=== PATIENT | male | born 1935 | race Caucasian/White ===

== ENCOUNTER 2021-07-28 09:43 | Observation (INO) ==
[2021-07-28] MEDS ORDERED: ONDANSETRON 4 MG/2 ML VIAL IV ONE (09:57)
[2021-07-28] MEDS ORDERED: 0.9 % SODIUM CHLORIDE 1,000 ML IV ONE ×2 (09:57→15:00)
--- NOTE | 2021-07-28 10:01 | Emergency Department Note ---
Nausea/Vomiting/Diarrhea HPI General Chief complaint: Nausea/Vomiting/Diarrhea Stated complaint: N/v/d Time Seen by Provider: 07/28/21 09:48 Source: patient and family Mode of arrival: wheelchair Limitations: no limitations History of Present Illness HPI Narrative: Narrative: 86-year-old male presents chief complaint of vomiting and diarrhea. Patient states this the eighth 80s had vomiting and diarrhea.'s mostly diarrhea occasional vomiting. Diarrhea is watery not bloody patient denies any abdominal pain chest pain shortness of breath or headache. Patient typically has chronic constipation but has had loose stools for the last 8 days. Denies any recent travel ill contacts or being on antibiotics. Denies any new foods. His is here at the bedside is not ill or having any GI complaints. Symptoms are worse when he tries to eat or drink anything. Last vomited this morning. Patient denies any history of a colitis. Related Data Home Medications Medication Instructions Recorded Confirmed desonide 0.05 % topical ointment 1 applic TOPICAL BID PRN 06/26/18 06/14/21 acetaminophen [Acetaminophen Extra PO 12/22/19 06/14/21 Strength] alendronate 70 mg tablet 70 mg PO QWEEK 12/22/19 07/28/21 cholecalciferol (vitamin D3) 25 25 mcg PO QDAY 12/22/19 06/14/21 mcg (1,000 unit) tablet docusate sodium 100 mg tablet 100 mg PO BID 12/22/19 06/14/21 calcium carbonate 600 mg calcium 2,500 mg PO BID tab 06/15/20 06/14/21 (1,500 mg) tablet budesonide 180 mcg/actuation 1 inh INHALATION DAILY 07/28/21 07/28/21 breath activated powder inhaler (Pulmicort Flexhaler) fluticasone furoate 100 1 puff CONTINUOUS INHALATION QDAY 07/28/21 07/28/21 mcg-vilanterol 25 mcg/dose inhalation powder (Breo Ellipta) levothyroxine 125 mcg tablet 1 tab PO QAM 07/28/21 07/28/21 tamsulosin 0.4 mg capsule 0.4 mg PO BID 07/28/21 07/28/21 Previous Rx's Medication Instructions Recorded triamcinolone acetonide 0.1 % 1 applic TOPICAL BID #30 g NS 03/17/22 topical ointment Allergies Allergy/AdvReac Type Severity Reaction Status Date / Time finasteride AdvReac Intermediate Rash Verified 07/28/21 09:44 [email or web address] [From Myrbetriq] AdvReac Intermediate Rash Verified 07/28/21 09:44 Review of Systems ROS ROS Narrative: Narrative: All systems ED: reviewed and negative except as stated. Constitutional: Denies fever, chills or sweats Eyes: Denies vision change ENT ED: Denies throat pain or congestion Cardiovascular: Denies chest pain Respiratory: Denies shortness of breath or cough Gastrointestinal: Reports as per HPI Genitourinary: Denies dysuria, frequency, urgency or hematuria Musculoskeletal: Denies back pain or joint pain Integumentary: Denies rash Neurological: Denies headache or dizziness Psychiatric: Denies anxiety, suicidal thoughts or homicidal thoughts Endocrine: Denies polydipsia or polyuria Hematological/Lymphatic: Denies easy bleeding or easy bruising PFSH Narrative Patient History Narrative: Narrative: Medical/Surgical/Family History All Active Problems (Updated 07/28/21 @ 11:52 by Socrates Cueto MD) Fall (Acute) Facial laceration (Acute) Closed fracture of right distal radius (Acute) Ileus (Acute) BPH w urinary obs/LUTS (Acute) BPH associated with nocturia (Acute) Leukocytosis (Chronic) Facial abrasion (Chronic) Syncope (Chronic) C2 cervical fracture (Chronic) H/O neck surgery (Chronic ~2019) History of tonsillectomy (Chronic) Allergy, food (Chronic) Dupuytren contracture (Chronic) Macular degeneration, 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) Urinary frequency (Chronic) Dyspnea (Chronic) Elevated prostate specific antigen (PSA) (Chronic) Acute prostatitis (Chronic) Nocturia (Chronic) Cough (Chronic) Post-nasal drip (Chronic) Nasal congestion (Chronic) Macular degeneration (Chronic) Osteoporosis (Chronic) Eczema (Chronic) Dupuytren's contracture of both hands (Chronic) BPH (benign prostatic hyperplasia) (Chronic) Chronic obstructive lung disease (Chronic) Asthma (Chronic) Hypothyroidism (Chronic) Acute retention of urine (Chronic) Constipation (Chronic) Medical History (Updated 07/28/21 @ 11:52 by Socrates Cueto MD) Acute prostatitis Allergy, food Asthma BPH (benign prostatic hyperplasia) C2 cervical fracture Chronic obstructive lung disease Cough Dupuytren contracture Dupuytren's contracture of both hands Dyspnea Eczema Elevated prostate specific antigen (PSA) Facial abrasion Hypothyroidism Late effect of fracture of cervical vertebra Leukocytosis Macular degeneration Macular degeneration, bilateral Nasal congestion Nocturia Osteoporosis Post-nasal drip Syncope Urinary frequency Surgical History H/O neck surgery (~2019) [place] - C1-2 posterior instrumented fusion with open reduction of C2 fracture History of tonsillectomy Family History Mother Uterine cancer Social History Smoking Status: Never smoker Alcohol Intake Frequency: holiday/special occasion only Substance Use: does not use Exam Narrative Narrative: Narrative: Vital Signs reviewed. Constitutional: Awake alert no acute distress well-nourished well-developed Head: Normocephalic, atraumatic Eyes: PERRLA, EOMI, no conjunctivitis Ear: Normal canals and TM's Oropharynx: moist oral mucosa, no edema, no erythema, no exudate Neck: Supple, no lymphadenopathy, no JVD Lungs: Breathing unlabored, lungs clear Cardiac: Regular rate and rhythm, normal distal pulses, GI: Soft nontender nondistended no guarding no rebound Musculoskeletal: No tenderness, no deformities, no edema, full range of motion Back: no CVA or midline tenderness Neuro: Awake alert, cranial nerves II through XII grossly intact, no focal motor or sensory deficits Psychiatric: Normal mood and affect Skin: Warm dry no rash, cap refill less than 2 seconds General Limitations: no limitations Course Consultations Consultation #1: Discussed with Dr. Mccartney who agrees to come evaluate patient Time: 12:49 Vital Signs Vital signs: Vital Signs Temperature 97.4 F 07/28/21 09:44 Pulse Rate 88 07/28/21 09:44 Respiratory Rate 16 07/28/21 09:44 Blood Pressure 158/85 07/28/21 09:44 Pulse Oximetry (%) 97 07/28/21 09:44 Temperature 98 F 07/28/21 14:43 Pulse Rate 71 07/28/21 14:43 Respiratory Rate 16 07/28/21 14:43 Blood Pressure 148/78 07/28/21 14:43 Pulse Oximetry (%) 94 07/28/21 14:43 MDM MDM Narrative Medical decision making narrative: Narrative: 86-year male presents with nausea vomiting for the last 8 days. Unable to keep anything down. No abdominal pain. No fevers chills. X-ray shows ileus. Patient gives bolus normal saline and it recommended observation in the hospital for hydration and symptomatic treatment. Differential Diagnosis Differential Diagnosis: Gastroenteritis, dehydration, electrolyte abnormality Lab Data Result diagrams: 07/28/21 09:45 07/28/21 09:45 Labs: Lab Results 07/28/21 07/28/21 07/28/21 Range/Units 09:45 09:45 09:45 WBC 11.8 H (4.5-11.0) K/mcL RBC 5.05 (4.63-6.08) M/mcL Hgb 15.8 (13.7-17.5) g/dL Hct 46.1 (40.1-51.0) % MCV 91.3 (80.0-100.0) fL MCH 31.3 (26.0-34.0) pg MCHC 34.3 (31.0-36.0) g/dL RDW 13.2 (11.5-14.5) % Plt Count 198 (140-440) K/mcL MPV 10.3 (7.4-10.4) fL Seg Neutrophils % 89 H (38-78) % Band Neutrophils % 1 (0-10) % Lymphocytes % 8 L (15-49) % Monocytes % (Manual) 2 (1-12) % Platelet Estimate Normal (Normal) RBC Morphology Normal (Normal) Sodium 133 (133-145) mmol/L Potassium 3.6 (3.3-5.1) mmol/L Chloride 94 L (96-108) mmol/L Carbon Dioxide 24 (22-30) mmol/L Anion Gap 15.0 (8.0-16.0) BUN 14 (8-23) mg/dL Creatinine 0.8 (0.7-1.2) mg/dL GFR Calculation 80 Glucose 102 (70-105) mg/dL Calcium 9.0 (8.6-10.4) mg/dL Total Bilirubin 1.0 (0.1-1.0) mg/dL AST 34 (<40) U/L ALT 28 (<40) U/L Alkaline Phosphatase 79 (39-117) U/L Troponin T < 0.01 (<0.03) ng/mL Total Protein 6.9 (5.9-8.4) gm/dL Albumin 4.2 (3.2-5.2) gm/dL Globulin 2.7 (2.2-3.7) gm/dL Albumin/Globulin Ratio 1.6 (1.0-2.3) Lipase 56 (7-60) U/L TSH (0.27-5.01) uIU/mL Urine Color Urine Appearance (Clear) Urine pH (5.0-9.0) Ur Specific [place] (1.000-1.035) Urine Protein (Negative) mg/dL Urine Glucose (UA) (Negative) mg/dL Urine Ketones (Negative) mg/dL Urine Occult Blood (Negative) mg/dL Urine Nitrate (Negative) Urine Bilirubin (Negative) mg/dL Urine Urobilinogen mg/dL Ur Leukocyte Esterase (Negative) /uL Ur Culture Indicated? 07/28/21 07/28/21 Range/Units 09:45 10:55 WBC (4.5-11.0) K/mcL RBC (4.63-6.08) M/mcL Hgb (13.7-17.5) g/dL Hct (40.1-51.0) % MCV (80.0-100.0) fL MCH (26.0-34.0) pg MCHC (31.0-36.0) g/dL RDW (11.5-14.5) % Plt Count (140-440) K/mcL MPV (7.4-10.4) fL Seg Neutrophils % (38-78) % Band Neutrophils % (0-10) % Lymphocytes % (15-49) % Monocytes % (Manual) (1-12) % Platelet Estimate (Normal) RBC Morphology (Normal) Sodium (133-145) mmol/L Potassium (3.3-5.1) mmol/L Chloride (96-108) mmol/L Carbon Dioxide (22-30) mmol/L Anion Gap (8.0-16.0) BUN (8-23) mg/dL Creatinine (0.7-1.2) mg/dL GFR Calculation Glucose (70-105) mg/dL Calcium (8.6-10.4) mg/dL Total Bilirubin (0.1-1.0) mg/dL AST (<40) U/L ALT (<40) U/L Alkaline Phosphatase (39-117) U/L Troponin T (<0.03) ng/mL Total Protein (5.9-8.4) gm/dL Albumin (3.2-5.2) gm/dL Globulin (2.2-3.7) gm/dL Albumin/Globulin Ratio (1.0-2.3) Lipase (7-60) U/L TSH 3.95 (0.27-5.01) uIU/mL Urine Color Yellow Urine Appearance Clear (Clear) Urine pH 7.0 (5.0-9.0) Ur Specific [place] 1.008 (1.000-1.035) Urine Protein Negative (Negative) mg/dL Urine Glucose (UA) Negative (Negative) mg/dL Urine Ketones 5 A (Negative) mg/dL Urine Occult Blood Negative (Negative) mg/dL Urine Nitrate Negative (Negative) Urine Bilirubin Negative (Negative) mg/dL Urine Urobilinogen Negative mg/dL Ur Leukocyte Esterase Negative (Negative) /uL Ur Culture Indicated? No ED POC Tests ED POC Tests: TRACI - SARS Antigen Negative EKG Data EKG #1: EKG attestation: Yes I reviewed and interpreted this EKG. and Yes There are no EKG findings of acute coronary syndrome EKG results narrative: EKG performed at 1003 shows sinus rhythm rate of 82 first-degree block normal axis nonspecific ST changes inferior Q waves poor R wave progression Discharge Plan Patient/Caregiver Discharge Instructions Pt seen by FABRICATION SUPERVISOR/PA only: No Clinical Impression: Ileus Patient Disposition: Xfer As Outpt/Obs ([facility]) Condition: Good Discharge Date/Time: 07/28/21 14:35
[2021-07-28 10:24] LABS: Hematocrit 46.1 % (40.1-51.0); Hemoglobin 15.8 g/dL (13.7-17.5); Mean Cell Volume 91.3 fL (80.0-100.0); Mean Corpuscular HGB Conc 34.3 g/dL (31.0-36.0); Mean Platelet Volume 10.3 fL (7.4-10.4); Platelet Count 198 K/mcL (140-440); RBC 5.05 M/mcL (4.63-6.08); Red Cell Distribution Width 13.2 % (11.5-14.5); WBC 11.8 K/mcL (4.5-11.0)
[2021-07-28 10:46] LABS: ALT/SGPT 28 U/L (<40); AST/SGOT 34 U/L (<40); Albumin 4.2 gm/dL (3.2-5.2); Albumin/Globulin Ratio 1.6 (1.0-2.3); Alkaline Phosphatase 79 U/L (39-117); Blood Urea Nitrogen 14 mg/dL (8-23); Carbon Dioxide 24 mmol/L (22-30); Chloride 94 mmol/L (96-108); Globulin 2.7 gm/dL (2.2-3.7); Glomerular Filtration Rate 80; Glucose 102 mg/dL (70-105)
--- NOTE | 2021-07-28 10:54 | XRay Report ---
HISTORY: Nausea, vomiting, diarrhea for the past eight days FINDINGS: Multiple air-fluid levels are present in nondilated large bowel. There are a few air-fluid levels in nondilated small intestine. The stomach is largely decompressed. No free intra-abdominal air is present. There is no apparent soft tissue mass. The patient has a loop recorder in the left chest wall. Severe atherosclerotic disease is present in the aorta. A moderate dextroscoliotic curvature is seen at the thoracolumbar junction. Associated with this is disc space narrowing and arthritis throughout the spine. Comparison with the prior x-ray done on 02/27/18 shows the bowel pattern is similar. There was greater distention of the small bowel on the prior exam. IMPRESSION: Ileus Interpreted and Authenticated by: Gerber Coleman 07/28/21
[2021-07-28 10:57] LABS: Band Neutrophils % 1 % (0-10); Lymphocytes % 8 % (15-49); Monocytes % (Manual) 2 % (1-12); Platelet Estimate NORMAL (Normal); RBC Morphology NORMAL (Normal); Segmented Neutrophils % 89 % (38-78)
[2021-07-28 11:55] LABS: Appearance,Urine CLEAR (Clear); Bilirubin,Urine Negative (Negative); Color,Urine YELLOW; Culture Indicated,Urine No; Glucose,Urine (UA) Negative (Negative); Ketones,Urine 5 mg/dL (Negative); Leukocyte Esterase,Urine Negative /uL (Negative); Nitrate,Urine Negative (Negative); Protein,Urine Negative (Negative); Specific Gravity,Urine 1.008 (1.000-1.035); Urine Blood Negative (Negative); Urobilinogen,Urine Negative
--- NOTE | 2021-07-28 13:06 | Internal Med History&Physical ---
HPI History of Present Illness Patient information: Note initiated : 07/28/21 at 1:02 pm Service Date, if different from initiated Date: [] Patient: Kyle Enriquez 86 y/o M admitted on for N/v/d. Chief Complaint: [] History of present illness: Mr. Enriquez is a 86 year old M Presents the ED with nausea vomiting diarrhea for about a week. Diarrhea is nonbloody and almost clear or bile color he says. He has been having diarrhea 4 times a day. He has nausea and vomiting when he tries to eat or drink anything. Has not been able to keep anything down. Denies any triggers that might of caused it initially in, no eating out. Has not been around events been sick. Denies having COVID and has not not had the COVID-vaccine. Shira test in the ED was negative. Patient denies any nominal pain coughing shortness of breath. Abdominal x-ray s hows ileus. Afebrile leukocytosis mildly. Because of the inability to keep anything down with the persistent symptoms admission was requested by ED. No new medications. Review of Systems: Pertinent positives as above. Denies headache/fever/chillschest or abdominal pain/cough/dyspnea. Otherwise see above. 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) Urinary frequency (Chronic) Dyspnea (Chronic) Elevated prostate specific antigen (PSA) (Chronic) Acute prostatitis (Chronic) Nocturia (Chronic) Cough (Chronic) Post-nasal drip (Chronic) Nasal congestion (Chronic) Macular degeneration (Chronic) Osteoporosis (Chronic) Eczema (Chronic) Dupuytren's contracture of both hands (Chronic) BPH (benign prostatic hyperplasia) (Chronic) Chronic obstructive lung disease (Chronic) Asthma (Chronic) Hypothyroidism (Chronic) Acute retention of urine (Chronic) Constipation (Chronic) Medical History (Updated 07/28/21 @ 11:52 by Socrates Cueto MD) Acute prostatitis Allergy, food Asthma BPH (benign prostatic hyperplasia) C2 cervical fracture Chronic obstructive lung disease Cough Dupuytren contracture Dupuytren's contracture of both hands Dyspnea Eczema Elevated prostate specific antigen (PSA) Facial abrasion Hypothyroidism Late effect of fracture of cervical vertebra Leukocytosis Macular degeneration Macular degeneration, bilateral Nasal congestion Nocturia Osteoporosis Post-nasal drip Syncope Urinary frequency Surgical History H/O neck surgery (~2019) [place] - C1-2 posterior instrumented fusion with open reduction of C2 fracture History of tonsillectomy Family History Mother Uterine cancer Social History marital status: occupational status: retired physical activity: none alcohol intake frequency: holiday/special occasion only substance use type: does not use MEDS/ALLERGIES Home Medications and Allergies Home Medications Medication Instructions Recorded Confirmed Type desonide 0.05 % topical ointment 1 applic TOPICAL BID PRN 06/26/18 06/14/21 History levothyroxine 112 mcg tablet 112 mcg PO QDAY 06/26/18 06/14/21 History acetaminophen [Acetaminophen Extra PO 12/22/19 06/14/21 History Strength] alendronate 70 mg tablet 70 mg PO QWEEK 12/22/19 06/14/21 History cholecalciferol (vitamin D3) 25 25 mcg PO QDAY 12/22/19 06/14/21 History mcg (1,000 unit) tablet docusate sodium 100 mg tablet 100 mg PO BID 12/22/19 06/14/21 History tamsulosin 0.4 mg capsule 0.4 mg PO BIDWMEAL #60 cap 01/07/20 06/14/21 Rx calcium carbonate 600 mg calcium 2,500 mg PO BID tab 06/15/20 06/14/21 History (1,500 mg) tablet fluticasone furoate 200 1 inh INHALATION Q24H #60 ea 11/10/20 06/14/21 Rx mcg-vilanterol 25 mcg/dose inhalation powder (Breo Ellipta) triamcinolone acetonide 0.1 % 1 applic TOPICAL BID #30 g NS 06/14/21 06/14/21 Rx topical ointment Allergies Allergy/AdvReac Type Severity Reaction Status Date / Time finasteride AdvReac Intermediate Rash Verified 07/28/21 09:44 [email or web address] [From Myrbetriq] AdvReac Intermediate Rash Verified 07/28/21 09:44 EXAM Constitutional Vitals: Temp Pulse Resp BP Pulse Ox 97.4 F 88 16 131/84 96 07/28/21 09:44 07/28/21 13:01 07/28/21 13:01 07/28/21 13:01 07/28/21 13:01 Exam: General: Alert, Awake, No acute Distress Eyes/N/T: EOMI, PERRL, dry MM Head/Neck: neck supple, normocephalic atraumatic CV: RRR, No murmurs, normal s1/s2 Pulm: Clear b/l, no wheezing/rhonchi/rales Abd: soft, nontender, +BS x4 Ext: no clubbing/cyanosis/edema Neuro: Alert, no focal deficits, moves all extremities, CN 2-12 grossly intact, symmetrical strength b/l upper/lower, sensations intact b/l upper/lower Skin: warm/dry DATA Data Completed and Pending Labs: Labs from last 24 hours 07/28/21 07/28/21 07/28/21 10:55 09:45 09:45 WBC 11.8 H RBC 5.05 Hgb 15.8 Hct 46.1 MCV 91.3 MCH 31.3 MCHC 34.3 RDW 13.2 Plt Count 198 MPV 10.3 Seg Neutrophils % 89 H Band Neutrophils % 1 Lymphocytes % 8 L Monocytes % (Manual) 2 Platelet Estimate Normal RBC Morphology Normal Sodium Potassium Chloride Carbon Dioxide Anion Gap BUN Creatinine GFR Calculation Glucose Calcium Total Bilirubin AST ALT Alkaline Phosphatase Troponin T < 0.01 Total Protein Albumin Globulin Albumin/Globulin Ratio Lipase Urine Color Yellow Urine Appearance Clear Urine pH 7.0 Ur Specific [place] 1.008 Urine Protein Negative Urine Glucose (UA) Negative Urine Ketones 5 A Urine Occult Blood Negative Urine Nitrate Negative Urine Bilirubin Negative Urine Urobilinogen Negative Ur Leukocyte Esterase Negative Ur Culture Indicated? No 07/28/21 09:45 WBC RBC Hgb Hct MCV MCH MCHC RDW Plt Count MPV Seg Neutrophils % Band Neutrophils % Lymphocytes % Monocytes % (Manual) Platelet Estimate RBC Morphology Sodium 133 Potassium 3.6 Chloride 94 L Carbon Dioxide 24 Anion Gap 15.0 BUN 14 Creatinine 0.8 GFR Calculation 80 Glucose 102 Calcium 9.0 Total Bilirubin 1.0 AST 34 ALT 28 Alkaline Phosphatase 79 Troponin T Total Protein 6.9 Albumin 4.2 Globulin 2.7 Albumin/Globulin Ratio 1.6 Lipase 56 Urine Color Urine Appearance Urine pH Ur Specific [place] Urine Protein Urine Glucose (UA) Urine Ketones Urine Occult Blood Urine Nitrate Urine Bilirubin Urine Urobilinogen Ur Leukocyte Esterase Ur Culture Indicated? A/P Narrative A/P Narrative: A: *N/V/D: Inability to keep down any food or drink *Volume depletion: *Hypothyroidism: *BPH: *Asthma: * P: -Antiemetics -Stool studies -Check TSH -IVF -Ambulation -PT/OT -Home medication reconciliation -ppx: Lovenox DNR Time Spent With Patient Time: Total time spent is greater than 50% in coordination of care (as documented) at patient's floor/unit and/or counseling patient:
[2021-07-28] MEDS ORDERED: MAGNESIUM SULFATE 2 GM/50 ML BAG IV PRN (15:00)
[2021-07-28] MEDS ORDERED: diphenhydrAMINE 50 MG/ML VIAL IV PRN (15:00)
[2021-07-28] MEDS ORDERED: METOCLOPRAMIDE 10 MG/2 ML VIAL IV PRN (15:00)
[2021-07-28] MEDS ORDERED: POTASSIUM CHLORIDE 40 MEQ in DEXTROSE 5% IN WATER 500 ML IV PRN (15:00)
[2021-07-28] MEDS ORDERED: IPRATROPIUM/ALBUTEROL 3 ML AMPUL.NEB NEB PRN (15:00)
[2021-07-28] MEDS ORDERED: POTASSIUM CHLORIDE 20 MEQ TABLET PO PRN ×2 (15:00)
[2021-07-28] MEDS ORDERED: PROMETHAZINE 25 MG/ML VIAL IV PRN (15:00)
[2021-07-28] MEDS: 0.9 % SODIUM CHLORIDE 10 ML SYRINGE IV SCH ×2 (15:58→23:56)
--- NOTE | 2021-07-28 16:44 | Discharge Summary ---
Discharge Provider Provider Patient information: Note initiated : 07/28/21 at 4:42 pm Service Date, if different from initiated Date: [] Patient: Kyle Enriquez 86 y/o M admitted on 07/28/21 for N/v/d. Chief Complaint: [] Date of admission: 07/28/21 14:35 Discharge date: 07/29/21 Primary care physician: Radha Gould Consults: 07/28/21 Consult to Physician [CONS] Stat Comment: Consulting Provider: William Mccartney Reason For Exam: Physician to Consult Consult to Physician [CONS] Stat Comment: Consulting Provider: William Mccartney Reason For Exam: Physician to Consult Discharge Meds Discharge Medications Home Medications desonide 0.05 % topical ointment 1 applic TOPICAL BID PRN 06/26/18 [History Confirmed 06/14/21 Last Taken Unknown] acetaminophen [Acetaminophen Extra Strength] PO 12/22/19 [History Confirmed 06/14/21 Last Taken Unknown] alendronate 70 mg tablet 70 mg PO QWEEK 12/22/19 [History Confirmed 07/28/21 Last Taken Unknown] cholecalciferol (vitamin D3) 25 mcg (1,000 unit) tablet 25 mcg PO QDAY 12/22/19 [History Confirmed 06/14/21 Last Taken Unknown] docusate sodium 100 mg tablet 100 mg PO BID 12/22/19 [History Confirmed 06/14/21 Last Taken Unknown] calcium carbonate 600 mg calcium (1,500 mg) tablet 2,500 mg PO BID tab 06/15/20 [History Confirmed 06/14/21 Last Taken Unknown] triamcinolone acetonide 0.1 % topical ointment 1 applic TOPICAL BID #30 g NS 06/14/21 [Rx Confirmed 07/28/21 Last Taken Unknown] budesonide 180 mcg/actuation breath activated powder inhaler (Pulmicort Flexhaler) 1 inh INHALATION DAILY 07/28/21 [History Confirmed 07/28/21 Last Taken Unknown] fluticasone furoate 100 mcg-vilanterol 25 mcg/dose inhalation powder (Breo Ellipta) 1 puff CONTINUOUS INHALATION QDAY 07/28/21 [History Confirmed 07/28/21 Last Taken Unknown] levothyroxine 125 mcg tablet 1 tab PO QAM 07/28/21 [History Confirmed 07/28/21 Last Taken Unknown] tamsulosin 0.4 mg capsule 0.4 mg PO BID 07/28/21 [History Confirmed 07/28/21 Last Taken Unknown] loperamide 2 mg capsule (Imodium A-D) 2 mg PO Q4H PRN #20 cap 07/29/21 [Rx Last Taken Unknown] COURSE Hospital Course Hospital course: History of present illness: Mr. Enriquez is a 86 year old M Presents the ED with nausea vomiting diarrhea for about a week. Diarrhea is nonbloody and almost clear or bile color he says. He has been having diarrhea 4 times a day. He has nausea and vomiting when he tries to eat or drink anything. Has not been able to keep anything down. Denies any triggers that might of caused it initially in, no eating out. Has not been around events been sick. Denies having COVID and has not not had the COVID-vaccine. Shira test in the ED was negative. Patient denies any nominal pain coughing shortness of breath. Abdominal x-ray shows ileus. Afebrile leukocytosis mildly. Because of the inability to keep anything down with the persistent symptoms admission was requested by ED. No new medications. 07/29 Diarrhea has significantly decreased. Patient feeling much better. And desiring to go home. Reactive leukocytosis resolved. A: *N/V/D: -c. diff neg, ELOISE neg *Volume depletion: *Hypothyroidism: tsh wnl *BPH: *Asthma: * Discharge diagnosis: Gastroenteritis volume depletion Secondary discharge diagnosis: Asthma BPH hypothyroidism Time Spent with Patient Time attestation: Total time spent providing and/or coordinating discharge services: Time spent: Greater than 30 minutes EXAM Constitutional Vitals: Temp Pulse Resp BP Pulse Ox 98 F 71 16 148/78 94 07/28/21 14:43 07/28/21 14:43 07/28/21 14:43 07/28/21 14:43 07/28/21 14:43 Discharge Data Data Completed and Pending Labs on day of discharge: Labs from last 24 hours 07/28/21 07/28/21 07/28/21 10:55 09:45 09:45 WBC 11.8 H RBC 5.05 Hgb 15.8 Hct 46.1 MCV 91.3 MCH 31.3 MCHC 34.3 RDW 13.2 Plt Count 198 MPV 10.3 Seg Neutrophils % 89 H Band Neutrophils % 1 Lymphocytes % 8 L Monocytes % (Manual) 2 Platelet Estimate Normal RBC Morphology Normal Sodium Potassium Chloride Carbon Dioxide Anion Gap BUN Creatinine GFR Calculation Glucose Calcium Total Bilirubin AST ALT Alkaline Phosphatase Troponin T Total Protein Albumin Globulin Albumin/Globulin Ratio Lipase TSH 3.95 Urine Color Yellow Urine Appearance Clear Urine pH 7.0 Ur Specific [place] 1.008 Urine Protein Negative Urine Glucose (UA) Negative Urine Ketones 5 A Urine Occult Blood Negative Urine Nitrate Negative Urine Bilirubin Negative Urine Urobilinogen Negative Ur Leukocyte Esterase Negative Ur Culture Indicated? No 07/28/21 07/28/21 09:45 09:45 WBC RBC Hgb Hct MCV MCH MCHC RDW Plt Count MPV Seg Neutrophils % Band Neutrophils % Lymphocytes % Monocytes % (Manual) Platelet Estimate RBC Morphology Sodium 133 Potassium 3.6 Chloride 94 L Carbon Dioxide 24 Anion Gap 15.0 BUN 14 Creatinine 0.8 GFR Calculation 80 Glucose 102 Calcium 9.0 Total Bilirubin 1.0 AST 34 ALT 28 Alkaline Phosphatase 79 Troponin T < 0.01 Total Protein 6.9 Albumin 4.2 Globulin 2.7 Albumin/Globulin Ratio 1.6 Lipase 56 TSH Urine Color Urine Appearance Urine pH Ur Specific [place] Urine Protein Urine Glucose (UA) Urine Ketones Urine Occult Blood Urine Nitrate Urine Bilirubin Urine Urobilinogen Ur Leukocyte Esterase Ur Culture Indicated? Discharge Plan Patient/Caregiver Discharge Instructions Activity: increase activity as tolerated Diet: Regular Diet Prescriptions: New loperamide [Imodium A-D] 2 mg capsule 2 mg PO Q4H PRN (Reason: loose stool) Qty: 20 0RF Rx Instructions: administer after each loose stool until symptoms controlled; do not exceed 8 mg per 24 hrs Continued desonide 0.05 % ointment 1 applic TOPICAL BID PRN (Reason: rash) 0RF alendronate 70 mg tablet 70 mg PO QWEEK 0RF cholecalciferol (vitamin D3) 25 mcg (1,000 unit) tablet 25 mcg PO QDAY 0RF docusate sodium 100 mg tablet 100 mg PO BID 0RF acetaminophen PO 0RF calcium carbonate 600 mg calcium (1,500 mg) tablet 2,500 mg PO BID 0RF triamcinolone acetonide 0.1 % ointment 1 applic topical BID Qty: 30 12RF Rx Instructions: Apply to affected area twice a day. tamsulosin 0.4 mg capsule 0.4 mg PO BID 0RF Breo Ellipta 100-25 mcg/dose blister with device 1 puff continuous inhalation QDAY 0RF levothyroxine 125 mcg tablet 1 tab PO QAM 0RF Pulmicort Flexhaler 180 mcg/actuation aerosol powdr breath activated 1 inh INHALATION DAILY 0RF Label Comments: [NO ORIGINAL SIG] Follow Up Plan Follow up with: Radha Gould MD [Primary Care Provider] - Patient Disposition: Home, Self-Care Prognosis: Good Overall status at discharge: patient is progressing back to baseline Discharge Orders: Discharge Order (Routine); Ordered 07/29/21 Ordered By: William Mccartney [facility] VTE Deep Vein Thrombosis/Pulmonary Embolism Present on Admission: No
[2021-07-28] MEDS: ONDANSETRON 4 MG/2 ML VIAL IV PRN (18:26)
--- NOTE | 2021-07-28 21:54 | EKG ---
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 Measurements Intervals [place] Rate: 82 P: 8 SD: 255 QRS: -11 QRSD: 93 T: -19 QT: 373 QTc: 436 Interpretive Statements Sinus rhythm Atrial premature complexes Prolonged SD interval Inferior infarct, age indeterminate Electronically Signed On 07-28-2021 21:54:44 PDT by Brett Mckeon D.O. /[id number]
[2021-07-29] MEDS: 0.9 % SODIUM CHLORIDE 10 ML SYRINGE IV SCH (04:55)
[2021-07-29] MEDS: ONDANSETRON 4 MG/2 ML VIAL IV PRN (07:09)
[2021-07-29] MEDS ORDERED: LEVOTHYROXINE 125 MCG TABLET PO SCH (07:30)
[2021-07-29] MEDS ORDERED: LOPERAMIDE 2 MG CAPSULE PO ONE (07:36)
[2021-07-29] MEDS ORDERED: LOPERAMIDE 2 MG CAPSULE PO PRN (07:36)
--- NOTE | 2021-07-29 07:38 | Internal Med Progress Note ---
SUBJECTIVE Subjective Patient information: Note initiated : 07/29/21 at 7:34 am Service Date, if different from initiated Date: [] Patient: Kyle Enriquez 86 y/o M admitted on 07/28/21 for N/v/d. Chief Complaint: [] Interval history: presents the ED with nausea vomiting diarrhea for about a week. Diarrhea is nonbloody and almost clear or bile color he says. He has been having diarrhea 4 times a day. He has nausea and vomiting when he tries to eat or drink anything. Has not been able to keep anything down. Denies any triggers that might of caused it initially in, no eating out. Has not been around events been sick. Denies having COVID and has not not had the COVID-vaccine. Shira test in the ED was negative. Patient denies any nominal pain coughing shortness of breath. Abdominal x-ray shows ileus. Afebrile leukocytosis mildly. Because of the inability to keep anything down with the persistent symptoms admission was requested by ED. No new medications. 07/29 Diarrhea has significantly decreased. Patient feeling much better. And desiring to go home. Reactive leukocytosis resolved. Review of Systems: denies headache/fever/chills/nausea/vomiting/chest or abdominal pain/cough/dyspnea. Otherwise see above. Constitutional Vitals: Vital Signs Temp Pulse Resp BP Pulse Ox 98.6 F 63 14 126/69 96 07/29/21 06:38 07/29/21 06:38 07/29/21 06:38 07/29/21 06:38 07/29/21 06:38 Period Temp Pulse Resp BP Sys/Ro Pulse Ox Last 24 Hr 97.4 F-98.7 F 36-88 14-29 122-166/57-96 82-99 Intake and Output 07/28/21 07/29/21 07/29/21 21:59 05:59 13:59 Intake Total 240 0 1000 Output Total 1175 300 Balance 240 -1175 700 Weight 55.248 kg Intake & Output: Intake & Output 07/28/21 07/29/21 07/29/21 21:59 05:59 13:59 Intake Total 240 0 1000 Output Total 1175 300 Balance 240 -1175 700 Weight 55.248 kg Intake: IV 1000 Sodium Chloride 0.9% 1,000 ml @ 1000 75 mls/hr IV .[id number] Rx#: [id number] Oral 240 0 Output: Void Amount 1175 300 Other: Meal Dinner Percent of Meal Consumed 95 Feeding Ability Independent Urine Appearance Clear Clear Urine Color Pale Pale Urine Odor Normal Stool Size Moderate Stool Color Yellow Stool Consistency Watery # Voids 1 # Bowel Movements 1 # of times incontinent of 1 Bowels Exam: General: Alert, Awake, No acute Distress Eyes/N/T: EOMI, Head/Neck: neck supple, CV: RRR, No murmurs, Pulm: Clear b/l, no wheezing/rhonchi/rales Abd: soft, nontender, +BS x4 Ext: no clubbing/cyanosis/edema Neuro: Alert, no focal deficits, moves all extremities, Skin: warm/dry OBJ DATA Labs CBC & Chem 7: 07/29/21 05:54 07/29/21 05:54 Labs: Abnormal Lab Results 07/28/21 07/28/21 07/28/21 10:55 09:45 09:45 WBC 11.8 H Seg Neutrophils % 89 H Lymphocytes % 8 L Chloride 94 L Urine Ketones 5 A Meds: Medications Albuterol/Ipratropium (Ipratropium/Albuterol 3 Ml Ampul.Neb) 3 ml NEB Q4HP PRN PRN Reason: Shortness Of Breath Diphenhydramine HCl (Diphenhydramine 50 Mg/Ml Vial) 12.5 mg IV Q4HP PRN PRN Reason: nausea/vomiting Enoxaparin Sodium (Enoxaparin 40 Mg/0.4 Ml Syringe) 40 mg SQ DAILY JESSICA Potassium Chloride 40 meq/ (Dextrose) 520 mls @ 130 mls/hr IV UD PRN PRN Reason: Potassium < 3 Magnesium Sulfate (Magnesium Sulfate) 2 gm in 50 mls @ 50 mls/hr IV UD PRN PRN Reason: Magnesium </= 1.6 Metoclopramide HCl (Metoclopramide 10 Mg/2 Ml Vial) 10 mg IV Q6HP PRN PRN Reason: Nausea And Vomiting Ondansetron HCl (Ondansetron 4 Mg/2 Ml Vial) 4 mg IV Q4HP PRN PRN Reason: Nausea And Vomiting Last Admin: 07/29/21 07:09 Dose: 4 mg Documented by: Potassium Chloride (Potassium Chloride 20 Meq Tablet) 40 meq PO UD PRN PRN Reason: Potssium is 3-3.5 Potassium Chloride (Potassium Chloride 20 Meq Tablet) 40 meq PO UD PRN PRN Reason: Potassium < 3 Promethazine HCl (Promethazine 25 Mg/Ml Vial) 12.5 mg IV Q6HP PRN PRN Reason: Nausea And Vomiting Sodium Chloride (0.9 % Sodium Chloride 10 Ml Syringe) 10 ml IV Q8 JESSICA Last Admin: 07/29/21 04:55 Dose: 10 ml Documented by: A/P Narrative A/P Narrative: A: *N/V/D: Inability to keep down any food or drink -c. diff neg, ELOISE neg *Volume depletion: *Hypothyroidism: tsh wnl *BPH: *Asthma: * P: -Antiemetics -s/p IVF -Ambulation -PT/OT -ppx: Lovenox DNR Time Spent With Patient Time: Total time spent is greater than 50% in coordination of care (as documented) at patient's floor/unit and/or counseling patient: [facility] VTE Deep Vein Thrombosis/Pulmonary Embolism Present on Admission: No
[2021-07-29 07:52] LABS: Hematocrit 39.9 % (40.1-51.0); Hemoglobin 13.7 g/dL (13.7-17.5); Mean Cell Volume 90.1 fL (80.0-100.0); Mean Corpuscular HGB Conc 34.3 g/dL (31.0-36.0); Mean Platelet Volume 10.8 fL (7.4-10.4); Platelet Count 186 K/mcL (140-440); RBC 4.43 M/mcL (4.63-6.08); Red Cell Distribution Width 13.2 % (11.5-14.5); WBC 5.7 K/mcL (4.5-11.0)
[2021-07-29 08:18] LABS: Eosinophils % (Manual) 5 % (0-7); Lymphocytes % 16 % (15-49); Monocytes % (Manual) 15 % (1-12); Platelet Estimate NORMAL (Normal); RBC Morphology NORMAL (Normal); Segmented Neutrophils % 64 % (38-78)
[2021-07-29 08:19] LABS: ALT/SGPT 20 U/L (<40); AST/SGOT 27 U/L (<40); Albumin 3.4 gm/dL (3.2-5.2); Albumin/Globulin Ratio 1.4 (1.0-2.3); Alkaline Phosphatase 67 U/L (39-117); Bilirubin,Direct < 0.2 mg/dL (0-0.3); Bilirubin,Total 0.6 mg/dL (0.1-1.0); Blood Urea Nitrogen 8 mg/dL (8-23); Calcium 8.2 mg/dL (8.6-10.4); Carbon Dioxide 25 mmol/L (22-30); Chloride 102 mmol/L (96-108); Globulin 2.4 gm/dL (2.2-3.7); Glomerular Filtration Rate 76; Glucose 79 mg/dL (70-105); Lactate Dehydrogenase 173 U/L (135-225); Phosphorous 2.2 mg/dL (2.5-4.5); Triglycerides 54 mg/dL (<150)
[2021-07-29] MEDS ORDERED: ENOXAPARIN 40 MG/0.4 ML SYRINGE SQ SCH (09:00)
[2021-07-29] MEDS ORDERED: TAMSULOSIN 0.4 MG CAPSULE PO SCH (09:00)
[2021-07-29] MEDS ORDERED: FLUTICASONE FUROATE VILANTEROL INH SCH (09:00)
== END 2021-07-29 11:05 | disposition home or self-care (01) ==
LOC: ED 09:43 → MEDSUR 14:35 → INTOOBSV 14:35
PROVIDERS: ADMIT Internal Medicine; ATTEND Internal Medicine